=== PATIENT | male | born 1950 | race Caucasian/White ===

== ENCOUNTER 2016-09-25 20:20 | Outpatient (CLI) | payer MEDICARE, OTHER ==
[~2016-09-25 20:20] MED LIST: ?BP MED; ACHD5005 PO; CEPH500C PO; EPIN0.1D10 INJ; TERA5CAP10 PO
== END 2016-09-26 06:25 | disposition home or self-care (01) ==
LOC: SLEEP 20:20
PROVIDERS: ATTEND Family Medicine
DX: G47.33 Obstructive sleep apnea (adult) (pediatric) (principal)
CPT/HCPCS: 95811

== ENCOUNTER → 2022-08-09 | Outpatient (CLI) | payer MEDICARE, OTHER ==
[~2022-08-09] MED LIST changes: +CATHETER FLUSH 10 ML SYR IVP PRN
--- NOTE | 2022-08-09 11:30 | Diagnostic Imaging Report ---
INDICATION: RUQ ABDOMINAL PAIN. FINDINGS: The patient was administered 5.40 mCi of Tc 99m Choletec and sequential imaging was performed over the right upper abdomen. There is progressive, homogeneous accumulation of radiotracer within the liver parenchyma. There is filling of the bile ducts and subsequent filling of the gallbladder. There is progressive clearance of activity from the liver parenchyma and accumulation of radiotracer within loops of small bowel. The patient was then administered a fatty meal, utilizing 8 ounces of Ensure. The gallbladder ejection fraction was calculated to be approximately 17.2%. (Normal values post fatty meal stimulation are 33% or greater.) IMPRESSION: 1. Hepatobiliary scan demonstrates a patent biliary tree. 2. Abnormal gallbladder ejection fraction of approximately 17.2%. Dictated by: Dictated on workstation # [id number]
== END ==
LOC: CARD 09:09
PROVIDERS: ATTEND Family Medicine
DX: R10.11 Right upper quadrant pain (principal)
CPT/HCPCS: 78227; A9537

== ENCOUNTER 2022-08-29 05:30 | Outpatient (CLI) | payer MEDICARE, OTHER ==
[~2022-08-29] VITALS: Ht 172.7 cm; Wt 95.5 kg
[~2022-08-29 05:30] MED LIST changes: -CATHETER FLUSH 10 ML SYR IVP PRN
[2022-09-02] MEDS ORDERED: CLOP-31 PO (11:46)
[2022-09-02] MEDS ORDERED: IMIP25TA4 PO (11:46)
[2022-09-02] MEDS ORDERED: FAMO-108 PO (11:46)
[2022-09-02] MEDS ORDERED: PRAV20TA3 PO (11:46)
[2022-09-02] MEDS ORDERED: TERA5CAP10 PO (11:46)
[2022-09-02] MEDS ORDERED: METO50TA7 PO (11:46)
== END 2022-09-02 12:00 | disposition home or self-care (01) ==
LOC: PREOP 05:30
PROVIDERS: ATTEND Surgery
DX: Z01.818 Encounter for other preprocedural examination (principal)

== ENCOUNTER 2022-09-05 07:12 | Day surgery (SDC) | payer MEDICARE, OTHER ==
[2022-09-05] VITALS (11 sets, daily range): BP systolic 115–171; BP diastolic 76–100
[~2022-09-05] VITALS: Ht 172 cm; Wt 95.5 kg
[~2022-09-05 07:12] MED LIST changes: +CLOP-31 PO; +FAMO-108 PO; +IMIP25TA4 PO; +METO50TA7 PO; +PRAV20TA3 PO
[2022-09-05] MEDS ORDERED: ceFAZolin INJECTION 2,000 MG in NS (IVPB) 50 ML IV ONE (07:30)
[2022-09-05] MEDS ORDERED: BUP/EPI 0.5% 1:200,000 (SENSORCAINE) 30 ML VIAL ONE (07:53)
[2022-09-05] MEDS ORDERED: ceFAZolin INJECTION 2,000 MG ONE (08:02)
[2022-09-05] MEDS ORDERED: NS (IVPB) 50 ML ONE (08:02)
[2022-09-05] MEDS ORDERED: SEVOFLURANE (ULTANE) 15 ML INHAL SOLN ONE ×4 (08:05→09:14)
[2022-09-05] MEDS ORDERED: ONDANSETRON 4 MG/2 ML (SDV) Z0FRAN ONE ×2 (08:05→08:08)
[2022-09-05] MEDS ORDERED: proPOfol 200 MG/20 ML (DIPRIVAN) VIAL IV ONE ×2 (08:05→08:08)
[2022-09-05] MEDS ORDERED: LIDOCAINE PF 2% 5 ML (XYLOCAINE) VIAL ONE ×2 (08:05→08:08)
[2022-09-05] MEDS: LACTATED RINGERS 1,000 ML IV PRN ×2 (08:07→09:04)
[2022-09-05] MEDS ORDERED: fentaNYL INJ 100 MCG/2 ML AMP ONE (08:07)
[2022-09-05] MEDS ORDERED: MIDAZOLAM 2 MG/2 ML (VERSED) VIAL ONE (08:08)
--- NOTE | 2022-09-05 08:15 | Progress Note-Pre Operative ---
Pre-Operative Progress Note Date H&P Reviewed: September 05, 2022 Time H&P Reviewed: 08:14 History & Physical: H&P Reviewed, Patient Examed, No changes noted Pre-Operative Diagnosis: biliary dyskinesia CHRYSTAL SHEIKH DO September 05, 2022 08:15
[2022-09-05] MEDS ORDERED: ROCURONIUM 50 MG/5 ML (ZEMURON) VIAL IV ONE (09:14)
--- NOTE | 2022-09-05 09:27 | Progress Note-Post Operative ---
Post-Operative Progess Note Surgeon (s)/Mercerizer (s) Surgeon CHRYSTAL SHEIKH DO Mercerizer: Dr. Love to assist in retraction dissection and closure Pre-Operative Diagnosis biliary dyskinesia Post-Operative Diagnosis same Procedure & Operative Findings Date of Procedure 09/05/22 Procedure Performed/Findings PROCEDURE: Laparoscopic cholecystectomy with intraoperative cholangiogram. COMPLICATIONS: None. PROCEDURE: The patient was taken to the operating suite and was prepped and draped in sterile fashion. A surgical pause was performed. Just superior to the umbilicus, a 12 mm incision was made. Dissection was taken down to the fascia, which was then scored and grasped with a Caitlyn and the abdomen was then entered. A 0 Vicryl suture was placed in a [id number] fashion and a Daniel trocar was placed and secured. Pneumoperitoneum was achieved. A 5mm trochar place in the subxyphoid and 2 in the right upper quadrant. The gallbladder was then grasped and elevated. Adhesions taken off the gallbladder. The cystic duct, and cystic artery were then dissected out. Clip was placed on the distal portion of the cystic duct which was then partially transected. An arrow catheter was inserted into the duct. The cholangiogram was then performed. No filing defects and contrast made its way into the duodenum. Catheter removed. Clips were placed on proximal portion of the cystic duct and then the duct was then transected. Clips were placed along the proximal and distal portion of the cystic artery which was then transected. Hook cautery was used to dissect the gallbladder from the gallbladder fossa achieving hemostasis. The gallbladder was placed in an Endobag and removed through the 12 mm trocar site. The abdomen was then reinspected. Copious amounts of irrigation were used to irrigate the abdomen and there were no signs of active bleeding. Hemostasis had been achieved. The 12 mm fascial defect was then closed with 0 Vicryl suture that had been placed in a [id number] fashion. The abdomen was then desufflated, the trocars were removed. The abdomen was then washed and dried. The skin was then closed using 4-0 Monocryl in a subcuticular fashion. The abdomen was washed and dried and Skin Affix was place over incisions. Patient tolerated the procedure well without any complications and was taken to the recovery room in stable condition. Anesthesia Type general Estimated Blood Loss Estimated blood loss (mL): minimal Specimens/Packing Specimens Removed gallbladder CHRYSTAL SHEIKH DO September 05, 2022 09:27
[2022-09-05] MEDS ORDERED: ACHD5005 PO (09:28)
[2022-09-05] MEDS ORDERED: DOCU-143 PO (09:28)
[2022-09-05] MEDS ORDERED: PHENYLEPHRINE 100 MCG/ML 10 ML (ANESTHESIA) SYR ONE (09:29)
--- NOTE | 2022-09-05 09:29 | Discharge Inst-Simple/Standard ---
Discharge Inst-Standard Discharge Medications New, Converted or Re-Newed RX: Transmitted to Pharmacy Patient Instructions/Follow Up Plan of Care/Instructions/FU: 2 weeks Farida Activity as Tolerated: No Discharge Diet: Regular Diet Other Inst to Patient Follow up Appt: Make appointment for 2 weeks. Instructions: No lifting greater than 10 pounds. No strenuous activity. May shower in 24 hours, no tub bath or soaking. Use incentive spirometer at home as directed. No Smoking Skin/Wound Care: You have special glue over incision, it will fall off on it's own. Symptoms to Report: Appetite Changes, Extremity Discoloration, Numbness/Tingling, Swelling Increased, Bleeding Excessive, Eyesight Changes, Pain Increased, Urine Color Change, Constipation(Persistent), Fever over 101 degree F, Pain/Pressure in chest, Urinating Difficulty, Cough Up/Vomit Blood, Heart Beat Irreg/Pounding, Pain/Pressure in jaw, Vaginal Bleeding Increase, Cramps in feet or legs, Lightheadedness, Pain/Pressure in shoulder, Diarrhea(Persistent), Memory Changes Suddenly, Questions/Concerns, Weight gain consecutive days, Dizziness/Fainting, Nausea/Vomiting, Shortness of Breath, Weight gain over 2 pounds. If eyes or skin turn yellow notify physician. If questions or concerns contact your physician Or seek help at emergency department. CHRYSTAL SHEIKH DO September 05, 2022 09:29
--- NOTE | 2022-09-05 09:47 | Anesthesia-General Post-Op ---
General Patient Condition Mental Status/LOC: Same as Preop Cardiovascular: Satisfactory Nausea/Vomiting: Absent Respiratory: Satisfactory Pain: Controlled Complications: Absent Post Op Complications Complications None Follow Up Care/Instructions Patient Instructions None needed. Anesthesia/Patient Condition Patient Condition Patient is doing well, no complaints, stable vital signs, no apparent adverse anesthesia problems. No complications reported per nursing. SOPHIA HASSAN CRNA September 05, 2022 09:47
[2022-09-05] MEDS ORDERED: ONDANSETRON 4 MG/2 ML (SDV) Z0FRAN IVP PRN (10:00)
[2022-09-05] MEDS ORDERED: morphine INJ 10 MG/ML 1ML (SYR OR VIAL) IVP ONE (10:00)
[2022-09-05] MEDS ORDERED: fentaNYL INJ 100 MCG/2 ML AMP IVP ONE (10:00)
[2022-09-05] MEDS ORDERED: MEPERIDINE (DEMEROL) INJ 50 MG/ML IVP ONE (10:00)
[2022-09-05] MEDS ORDERED: HYDROcodone/APAP 5 MG/325 MG (LORTAB) TAB ONE (11:21)
[2022-09-05] MEDS ORDERED: HYDROcodone/APAP 5 MG/325 MG (LORTAB) TAB PO ONE (11:30)
--- NOTE | 2022-09-05 15:10 | Diagnostic Imaging Report ---
INDICATION: Right upper quadrant pain with biliary dyskinesia. FINDINGS: One image and cine intraoperative cholangiogram images are submitted. There is cannulation of the extra hepatic biliary tree. Images demonstrate contrast opacification of the biliary system. Biliary tree is not significantly dilated. There was no persistent filling defect to indicate a retained stone. Flow was present into the duodenum. IMPRESSION: Negative laparoscopic cholangiogram. Fluoroscopic time: 7 seconds Dictated by: Dictated on workstation # [id number]
== END 2022-09-05 13:15 | disposition home or self-care (01) ==
LOC: SDC 07:12
PROVIDERS: ATTEND Surgery
DX: K82.8 Other specified diseases of gallbladder (principal); K81.1 Chronic cholecystitis; Z87.891 Personal history of nicotine dependence; Z79.02 Long term (current) use of antithrombotics/antiplatelets; E66.9 Obesity, unspecified; G47.33 Obstructive sleep apnea (adult) (pediatric); Z68.32 Body mass index [BMI] 32.0-32.9, adult
CPT/HCPCS: 76000; 87081; 94664